=== PATIENT | male | born 1965 | race Caucasian/White ===

== ENCOUNTER 2017-04-02 17:59 | Emergency (ER) | payer BC ==
[2017-04-02 18:14] VITALS: BP 126/79
--- NOTE | 2017-04-02 18:30 | UC ---
UC General HPI - HPI Summary HPI Summary: 2 DAYS OF BODY ACHES AND PAINS LOW GRADE TEMP, NO COUGH, FATIGUE - History of Current Complaint Chief Complaint: UCGeneralIllness Stated Complaint: CHILLS AND ACHEY Time Seen by Provider: 04/02/17 18:20 Hx Obtained From: Patient Onset/Duration: Sudden Onset, Lasting Days - 2, Still Present Timing: Constant Onset Severity: Mild Current Severity: Mild Associated Signs & Symptoms: Positive: Fever, Other - malagia - Allergy/Home Medications Allergies/Adverse Reactions: Allergies Allergy/AdvReac Type Severity Reaction Status Date / Time No Known Allergies Allergy Verified 04/02/17 18:10 PMH/Surg Hx/FS Hx/Imm Hx Previously Healthy: Yes - Surgical History Surgical History: Yes Surgery Procedure, Year, and Place: Appendectomy, ~2006, [place] - Family History Known Family History: Positive: None - Social History Occupation: Employed Full-time Lives: With Family Alcohol Use: Occasionally Substance Use Type: None Smoking Status (MU): Never Smoked Tobacco - Immunization History Most Recent Influenza Vaccination: Not the Season Review of Systems Constitutional: Fever, Fatigue Skin: Negative Eyes: Negative ENT: Negative Respiratory: Negative Cardiovascular: Negative Gastrointestinal: Negative Genitourinary: Negative Motor: Negative Neurovascular: Negative Musculoskeletal: Arthralgia, Myalgia Neurological: Headache Psychological: Negative Is Patient Immunocompromised?: No All Other Systems Reviewed And Are Negative: Yes Physical Exam Triage Information Reviewed: Yes Appearance: Well-Appearing, No Pain Distress, Well-Nourished Vital Signs: Initial Vital Signs Temp 100.2 F 04/02/17 18:07 Pulse 86 04/02/17 18:07 Resp 18 04/02/17 18:07 BP 126/79 04/02/17 18:07 Pulse Ox 96 04/02/17 18:07 Vital Signs Reviewed: Yes Eye Exam: Normal Eyes: Positive: Conjunctiva Clear ENT Exam: Normal ENT: Positive: Normal ENT inspection, Hearing grossly normal, Pharynx normal. Negative: Nasal congestion, Nasal drainage, Trismus, Muffled/hoarse voice Dental Exam: Normal Neck exam: Normal Neck: Positive: Supple, Nontender, No Lymphadenopathy Respiratory Exam: Normal Respiratory: Positive: Chest non-tender, Lungs clear, Normal breath sounds, No respiratory distress, No accessory muscle use Cardiovascular Exam: Normal Cardiovascular: Positive: RRR, No Murmur, Pulses Normal, Tachycardia Abdominal Exam: Normal Abdomen Description: Positive: Nontender, No Organomegaly, Soft. Negative: CVA Tenderness (R), CVA Tenderness (L) Bowel Sounds: Positive: Present Musculoskeletal Exam: Normal Musculoskeletal: Positive: Strength Intact, ROM Intact Neurological Exam: Normal Neurological: Positive: Alert, Muscle Tone Normal Psychological Exam: Normal Psychological: Positive: Normal Response To Family Skin Exam: Normal Diagnostics - Laboratory Diagnostic Studies Completed/Ordered: influenza A/B (-) Course/Dx - Course Course Of Treatment: Lab studies, rest increase fluids, follow with pcp - Differential Dx - Multi-Symptom Differential Diagnoses: Metabolic Abnormality, Other - viral illness Provider Diagnoses: Viral illness Discharge - Discharge Plan Condition: Stable Disposition: HOME Patient Education Materials: Viral Syndrome (ED), Musculoskeletal Pain (ED) Forms: *Work Release Referrals: Rubén Ventura MD [Primary Care Provider] - 04/04/17
[2017-04-03 11:35] LABS: Hematocrit 45 % (42-52); Hemoglobin 15.5 g/dl (14.0-18.0); Mean Corpuscular HGB Conc 35 g/dl (31-36); Mean Corpuscular Hemoglobin 32 pg (27-31); Mean Corpuscular Volume 92 fL (80-94); Mean Platelet Volume 9 um3 (7.4-10.4); Red Blood Count 4.88 10^6/ul (4.0-5.4); Red Cell Distribution Width 13 % (10.5-15); White Blood Count 3.6 10^3/ul (3.5-10.8)
[2017-04-03 11:36] LABS: Add Diff/Slide Review? Slide Review Added; Comments Flag Yes
== END 2017-04-02 19:15 | disposition home or self-care (01) ==
LOC: UCCORT 17:59
DX: B34.9 Viral infection, unspecified (principal); R50.9 Fever, unspecified
CPT/HCPCS: 36415; 81003; 85025; 86618; 87502; 99211; G0463

== ENCOUNTER 2018-04-19 09:40 | Emergency (ER) | payer BC ==
[2018-04-19 10:11] VITALS: BP 133/73
--- NOTE | 2018-04-19 10:38 | UC ---
Knee Pain HPI - HPI Summary HPI Summary: Pain to the inside of the right knee for one month. It occurs with movement, patient demonstrates that it occurs with external rotation of the right lower leg. Denies any history of injury. Admits to occasional mild swelling. Denies any other arthralgias area - History of Current Complaint Chief Complaint: UCLowerExtremity Stated Complaint: RT KNEE CONCERN Time Seen by Provider: 04/19/18 10:15 Hx Obtained From: Patient, Family/Reconditioning Associate Onset/Duration: Gradual Onset Pain Intensity: 0 Aggravating Factor(s): Movement Alleviating Factor(s): Rest Associated Signs And Symptoms: Positive: Swelling Able to Bear Weight: Yes - Allergies/Home Medications Allergies/Adverse Reactions: Allergies Allergy/AdvReac Type Severity Reaction Status Date / Time No Known Allergies Allergy Verified 04/19/18 10:12 Home Medications: Home Medications Ibuprofen TAB* [Motrin TAB* 400 MG] 400 mg PO Q6H PRN 04/19/18 [History Confirmed 04/19/18] PMH/Surg Hx/FS Hx/Imm Hx - Additional Past Medical History Additional PMH: Cerebral palsy - Surgical History Surgical History: Yes Surgery Procedure, Year, and Place: Appendectomy, ~2006, [place] - Family History Known Family History: Positive: None - Social History Occupation: Employed Full-time Lives: With Family Alcohol Use: Occasionally Substance Use Type: None Smoking Status (MU): Never Smoked Tobacco - Immunization History Most Recent Influenza Vaccination: Not the 2016/2017 Season Vaccination Up to Date: Yes Review of Systems Constitutional: Negative Skin: Negative Eyes: Negative ENT: Negative Respiratory: Negative Cardiovascular: Negative Gastrointestinal: Negative Genitourinary: Negative Motor: Negative Neurovascular: Negative Musculoskeletal: Other: - R knee pain Neurological: Other - spasticity Psychological: Negative Is Patient Immunocompromised?: No All Other Systems Reviewed And Are Negative: Yes Physical Exam Triage Information Reviewed: Yes Appearance: Well-Appearing Vital Signs: Initial Vital Signs Temp 97.2 F 04/19/18 10:02 Pulse 63 04/19/18 10:02 Resp 12 04/19/18 10:02 BP 133/73 04/19/18 10:02 Pulse Ox 97 04/19/18 10:02 Vital Signs Reviewed: Yes Eyes: Positive: Conjunctiva Clear ENT: Positive: Normal ENT inspection Neck: Positive: Supple, Nontender, No Lymphadenopathy Respiratory: Positive: Lungs clear, Normal breath sounds Cardiovascular: Positive: RRR, No Murmur Abdomen Description: Positive: Nontender, No Organomegaly, Soft Bowel Sounds: Positive: Present Musculoskeletal: Positive: Other: - RLE: Hip is atraumatic. Right knee when compared to left has mild swelling to the medial aspect. Patient has tenderness palpation over the medial joint line but no additional tenderness. There is no laxity on valgus, varus, anterior or posterior stressing. The patella is not ballotable. External rotation of the lower leg reproduces medial joint pain. The joint has full active and passive range of motion. The wrist of the right lower extremity is nontender, atraumatic and has full sensorivascular motor function. Neurological: Positive: Alert, Other: - Patient is noted to have spasticity consistent with his CP Psychological: Positive: Age Appropriate Behavior Skin Exam: Normal Skin: Negative: rashes Diagnostics - Radiology No standard instances Radiology Interpretation Completed By: Radiologist - R knee=. Very mild osteoarthritis. Knee Pain Course/Dx - Course Course Of Treatment: No concern for infection. Mild osteoarthritis on x-ray. History and physical exam is suggestive of a possible meniscal tear this patient is to have orthopedic follow-up. - Differential Dx/Diagnosis Provider Diagnoses: Acute right medial knee pain. Possible meniscal tear. Discharge - Sign-Out/Discharge Documenting (check all that apply): Patient Departure All imaging exams completed and their final reports reviewed: Yes - Discharge Plan Condition: Stable Disposition: HOME Patient Education Materials: Knee Pain (ED) Referrals: Nixon Jackson MD [Primary Care Provider] - If Needed Jake Zarate MD [Medical Doctor] - As Soon As Possible - Billing Disposition and Condition Condition: STABLE Disposition: Home
--- NOTE | 2018-04-19 10:50 | RAD ---
Indication: 2 days RIGHT knee pain. Comparison: August 10, 2004 Technique: RIGHT knee: AP, tunnel, lateral, sunrise views. Report: Negative for joint effusion, fracture, or malalignment. Minimal osteophytosis. Negative for significant joint space narrowing. Unremarkable soft tissue contours. IMPRESSION: #. Very mild osteoarthritis.
== END 2018-04-19 11:04 | disposition home or self-care (01) ==
LOC: UCCORT 09:40
DX: M25.561 Pain in right knee (principal)
CPT/HCPCS: 99211; G0463